=== PATIENT | male | born 1985 | race Asian ===

== ENCOUNTER 2018-03-09 02:38 | Emergency (ER) | payer SELFPAY | END 2018-03-09 02:56 | disposition left against medical advice (07) | LOC: SED 02:38 | DX: R06.02 Shortness of breath (principal); Z53.21 Procedure and treatment not carried out due to patient leaving prior to being seen by health care provider; V43.92XA Unspecified car occupant injured in collision with other type car in traffic accident, initial encounter; Y93.89 Activity, other specified; Y92.410 Unspecified street and highway as the place of occurrence of the external cause; Y99.8 Other external cause status ==